=== PATIENT | female | born 1980 | race African-American/Black ===

== ENCOUNTER 2017-02-19 23:56 | Emergency (ER) | payer SELFPAY ==
[~2017-02-19 23:56] MED LIST: FERR134T5 PO; PREN1TAB80 PO
== END 2017-02-20 01:35 | disposition home or self-care (01) ==
LOC: EDH 23:56
DX: M06.9 Rheumatoid arthritis, unspecified (principal); J45.909 Unspecified asthma, uncomplicated; Z88.0 Allergy status to penicillin; Z88.8 Allergy status to other drugs, medicaments and biological substances
CPT/HCPCS: 81025

== ENCOUNTER 2017-04-02 11:18 | Emergency (ER) | payer SELFPAY ==
[2017-04-02 11:59] LABS: RAPID GROUP A STREP NEGATIVE (NEGATIVE)
[2017-04-02] MEDS ORDERED: ONDANSETRON HCL 4 MG/2 ML VIAL ONE (12:00)
== END 2017-04-02 12:22 | disposition home or self-care (01) ==
LOC: EDH 11:18
DX: J10.1 Influenza due to other identified influenza virus with other respiratory manifestations (principal); M81.0 Age-related osteoporosis without current pathological fracture; J45.909 Unspecified asthma, uncomplicated; Z88.0 Allergy status to penicillin; Z88.8 Allergy status to other drugs, medicaments and biological substances
CPT/HCPCS: 71045; 87804 ×2; 87880; 96361; 96374; 99285; J2405

== ENCOUNTER 2017-04-02 17:11 | Emergency (ER) | payer SELFPAY ==
[2017-04-02] MEDS ORDERED: DEXAMETHASONE SOD PHOSPHATE 10MG/ML 1ML VIAL ONE (17:42)
== END 2017-04-02 18:53 | disposition home or self-care (01) ==
LOC: EDH 17:11
DX: J11.1 Influenza due to unidentified influenza virus with other respiratory manifestations (principal); J45.909 Unspecified asthma, uncomplicated; M06.9 Rheumatoid arthritis, unspecified; Z87.891 Personal history of nicotine dependence; Z88.0 Allergy status to penicillin; Z88.8 Allergy status to other drugs, medicaments and biological substances
CPT/HCPCS: 96372; 99283; J1100

== ENCOUNTER 2017-06-09 22:02 | Emergency (ER) | payer SELFPAY ==
[2017-06-09] MEDS ORDERED: KETOROLAC TROMETHAMINE 30MG/ML ONE (23:07)
[2017-06-09] MEDS ORDERED: DEXAMETHASONE SOD PHOSPHATE 10MG/ML 1ML VIAL ONE (23:07)
== END 2017-06-10 00:17 | disposition home or self-care (01) ==
LOC: EDH 22:02
DX: M06.9 Rheumatoid arthritis, unspecified (principal); J45.909 Unspecified asthma, uncomplicated; Z88.0 Allergy status to penicillin; Z88.6 Allergy status to analgesic agent
CPT/HCPCS: 73110; 81025; 96374; 96375; 99285; J1100; J1885

== ENCOUNTER 2017-07-28 22:43 | Emergency (ER) | payer SELFPAY ==
[2017-07-28 23:27] LABS: BASOPHILS % (AUTO) 0.5 % (0.0-5.0); EOSINOPHILS % (AUTO) 1.5 % (0.0-8.0); HEMATOCRIT 29.1 % (36-48); LYMPHOCYTES % (AUTO) 21.3 % (21.0-51.0); MEAN CORPUSCULAR HEMOGLOBIN 28.1 pg (27.0-33.0); MEAN CORPUSCULAR HGB CONC 33.9 g/dL (32.0-36.0); MONOCYTES % (AUTO) 3.9 % (3.0-13.0); NEUTROPHILS % (AUTO) 72.8 % (40.0-77.0); PLATELET COUNT (AUTO) 51 K/uL (130-400); RED BLOOD CELL COUNT(AUTO) 3.51 MIL/uL (4.00-5.50); RED CELL DISTRIBUTION WIDTH 13.3 % (11.0-15.5); WHITE BLOOD COUNT (AUTO) 4.1 K/uL (4.8-10.8)
[2017-07-28 23:39] LABS: CREATININE 0.9 mg/dL (0.5-1.5); POTASSIUM 3.6 mmol/L (3.5-5.1)
[2017-07-28 23:44] LABS: ALBUMIN 2.4 g/dL (3.5-5.0); BILIRUBIN,TOTAL 0.2 mg/dL (0.2-1.0); TOTAL PROTEIN, SERUM 9.1 g/dL (6.0-8.3)
[2017-07-29] MEDS ORDERED: DEXAMETHASONE SOD PHOSPHATE 10MG/ML 1ML VIAL ONE (00:06)
[2017-07-29 00:41] LABS: APPEARANCE,URINE CLEAR (CLEAR); BILIRUBIN,URINE NEGATIVE (NEGATIVE); COLOR,URINE YELLOW (YELLOW); GLUCOSE, URINE (UA) NEGATIVE (NEGATIVE); KETONES,URINE NEGATIVE (NEGATIVE); LEUKOCYTE ESTERASE ,URINE NEGATIVE (NEGATIVE); NITRATE,URINE NEGATIVE (NEGATIVE); OCCULT BLOOD,URINE NEGATIVE (NEGATIVE); PH,URINE 6.5 (5.0-8.0); PROTEIN,URINE TRACE (NEGATIVE)
[2017-07-29 00:51] LABS: BACTERIA,URINE Rare /HPF (None Seen); MUCUS,URINE Few LPF (None Seen); WBC,URINE 0-1 /HPF (0-1)
[2017-07-29] MEDS ORDERED: KETOROLAC TROMETHAMINE 30MG/ML ONE (01:20)
== END 2017-07-29 02:32 | disposition home or self-care (01) ==
LOC: EDH 22:43
DX: M06.9 Rheumatoid arthritis, unspecified (principal); J45.909 Unspecified asthma, uncomplicated; Z88.0 Allergy status to penicillin; Z88.6 Allergy status to analgesic agent; Z98.890 Other specified postprocedural states
CPT/HCPCS: 36415; 80053; 81001; 85025; 85651; 96372; 96374; 99284; J1100; J1885

== ENCOUNTER 2018-03-05 10:43 | Emergency (ER) | payer OTHER ==
[2018-03-05 11:32] LABS: APPEARANCE,URINE Clear (CLEAR); BILIRUBIN,URINE Negative (NEGATIVE); COLOR,URINE Yellow (YELLOW); GLUCOSE, URINE (UA) Negative (NEGATIVE); KETONES,URINE Negative (NEGATIVE); LEUKOCYTE ESTERASE ,URINE Negative (NEGATIVE); NITRATE,URINE Negative (NEGATIVE); OCCULT BLOOD,URINE Small (NEGATIVE); PROTEIN,URINE Negative (NEGATIVE); UROBILINOGEN,URINE 0.2 mg/dL (0.2-1.0)
[2018-03-05 11:33] LABS: BASOPHILS % (AUTO) 0.7 % (0.0-5.0); HEMATOCRIT 28.4 % (36-48); LYMPHOCYTES % (AUTO) 30.2 % (21.0-51.0); MEAN CORPUSCULAR HEMOGLOBIN 27.8 pg (27.0-33.0); MEAN CORPUSCULAR HGB CONC 33.4 g/dL (32.0-36.0); MEAN CORPUSCULAR VOLUME 83.2 fL (79-99); MONOCYTES % (AUTO) 6.6 % (3.0-13.0); NEUTROPHILS % (AUTO) 61.5 % (40.0-77.0); NUCLEATED RED BLOOD CELLS 0.1 % (0.0-0.19); PLATELET COUNT (AUTO) 35 K/uL (130-400); RED BLOOD CELL COUNT(AUTO) 3.41 MIL/uL (4.00-5.50); RED CELL DISTRIBUTION WIDTH 16.2 % (11.0-15.5); WHITE BLOOD COUNT (AUTO) 3.1 K/uL (4.8-10.8)
[2018-03-05 11:35] LABS: HCG,QUAL RESULT NEGATIVE (NEGATIVE)
[2018-03-05 11:36] LABS: CREATININE 0.8 mg/dL (0.5-1.5); POTASSIUM 4.2 mmol/L (3.5-5.1)
[2018-03-05] MEDS ORDERED: MECLIZINE HCL 25 MG TABLET ONE (11:50)
[2018-03-05 11:56] LABS: BACTERIA,URINE None Seen /HPF (None Seen); RBC,URINE 0-1 /HPF (0-1); SQUAMOUS EPITHELIAL CELL,UR Rare /HPF (0-2); WBC,URINE None Seen /HPF (0-1)
== END 2018-03-05 12:53 | disposition home or self-care (01) ==
LOC: EDH 10:43
DX: R42 Dizziness and giddiness (principal); D69.6 Thrombocytopenia, unspecified; D64.9 Anemia, unspecified; J45.909 Unspecified asthma, uncomplicated; Z88.0 Allergy status to penicillin; Z88.5 Allergy status to narcotic agent; Z88.8 Allergy status to other drugs, medicaments and biological substances
CPT/HCPCS: 36415; 80048; 81001; 81025; 85025

== ENCOUNTER 2018-05-10 07:38 | Inpatient (IN) | payer OTHER | END 2018-05-13 12:00 | disposition short-term general hospital (02) | LOC: EDH 07:38 → 4CH 05-11 22:14 → EDHIP 07:39 → 2DH 15:23 | DX: D69.6 Thrombocytopenia, unspecified (principal); E87.1 Hypo-osmolality and hyponatremia; R10.31 Right lower quadrant pain ==

== ENCOUNTER 2018-09-02 22:02 | Inpatient (IN) | payer OTHER ==
[~2018-09-02] VITALS: Ht 154.9 cm; Wt 65.8 kg
[2018-09-02 22:40] LABS: INR 0.95 (0.85-1.15); PARTIAL THROMBOPLASTIN TIME 26.6 SEC (26.3-35.5)
[2018-09-02 22:44] LABS: CREATININE 0.9 mg/dL (0.5-1.5); POTASSIUM 3.6 mmol/L (3.5-5.1)
[2018-09-02 22:46] LABS: MEAN CORPUSCULAR HEMOGLOBIN 25.2 pg (27.0-33.0); NUCLEATED RED BLOOD CELLS 0.2 % (0.0-0.19); PLATELET COUNT (AUTO) 11 K/uL (130-400); WHITE BLOOD COUNT (AUTO) 4.6 K/uL (4.8-10.8)
[2018-09-02 22:49] LABS: ALBUMIN 2.3 g/dL (3.5-5.0); BILIRUBIN,TOTAL 0.1 mg/dL (0.2-1.0); TOTAL PROTEIN, SERUM 8.4 g/dL (6.0-8.3)
[2018-09-02 22:56] LABS: BASOPHILS % (AUTO) 0.3 % (0.0-5.0); EOSINOPHILS % (AUTO) 1.1 % (0.0-8.0); HEMATOCRIT 22.5 % (36-48); LYMPHOCYTES % (AUTO) 22.3 % (21.0-51.0); MEAN CORPUSCULAR HGB CONC 32.8 g/dL (32.0-36.0); MEAN CORPUSCULAR VOLUME 76.7 fL (79-99); MONOCYTES % (AUTO) 3.6 % (3.0-13.0); NEUTROPHILS % (AUTO) 72.7 % (40.0-77.0); RED BLOOD CELL COUNT(AUTO) 2.93 MIL/uL (4.00-5.50); RED CELL DISTRIBUTION WIDTH 15.1 % (11.0-15.5)
[2018-09-02 23:35] LABS: APPEARANCE,URINE Clear (CLEAR); BILIRUBIN,URINE Negative (NEGATIVE); COLOR,URINE Yellow (YELLOW); GLUCOSE, URINE (UA) Negative (NEGATIVE); KETONES,URINE Negative (NEGATIVE); LEUKOCYTE ESTERASE ,URINE Negative (NEGATIVE); NITRATE,URINE Negative (NEGATIVE); OCCULT BLOOD,URINE Negative (NEGATIVE); PH,URINE 6.5 (5.0-8.0); PROTEIN,URINE Negative (NEGATIVE)
[2018-09-03] MEDS ORDERED: ONDANSETRON HCL 4 MG/2 ML VIAL ONE (00:07)
[2018-09-03] MEDS ORDERED: MORPHINE SULFATE 4 MG/1ML SYG ONE (00:08)
[2018-09-03] MEDS ORDERED: SODIUM CHLORIDE 0.9% 500ML 500 ML IV ONE (01:56)
[2018-09-03 02:55] VITALS: BP 117/61
[2018-09-03 07:31] VITALS: BP 105/73
[2018-09-03 08:19] LABS: HEMATOCRIT 22.1 % (36-48); MEAN CORPUSCULAR HEMOGLOBIN 25.1 pg (27.0-33.0); MEAN CORPUSCULAR HGB CONC 32.4 g/dL (32.0-36.0); MEAN CORPUSCULAR VOLUME 77.6 fL (79-99); PLATELET COUNT (AUTO) 36 K/uL (130-400); RED BLOOD CELL COUNT(AUTO) 2.85 MIL/uL (4.00-5.50); RED CELL DISTRIBUTION WIDTH 15.5 % (11.0-15.5); WHITE BLOOD COUNT (AUTO) 3.8 K/uL (4.8-10.8)
--- NOTE | 2018-09-03 10:16 | NUR ---
BERTHA Denise met with pt who lives with her [phone] and daughter who assist pt with all her ADLS. Pt states has to help her in shower, dressing, grooming, walking. Pt has no DME or in home care services. Pt reports she has been denied SSD 3xs and is now working with an shipyard painter apprentice and the appeal public relations counselor in [place]. Pt is seen by Dr Welch. Plan is home with family. CM to follow and assist as needed Addendum: 09/03/18 at 1038 by HOWARD CASTILLO Amended: Links added.
[2018-09-03 10:50] VITALS: BP 108/67
[2018-09-03 15:39] LABS: HEMATOCRIT 22.2 % (36-48); MEAN CORPUSCULAR HEMOGLOBIN 24.9 pg (27.0-33.0); MEAN CORPUSCULAR VOLUME 77.7 fL (79-99); NUCLEATED RED BLOOD CELLS 0.1 % (0.0-0.19); PLATELET COUNT (AUTO) 18 K/uL (130-400); RED BLOOD CELL COUNT(AUTO) 2.86 MIL/uL (4.00-5.50); RED CELL DISTRIBUTION WIDTH 15.6 % (11.0-15.5); WHITE BLOOD COUNT (AUTO) 3.4 K/uL (4.8-10.8)
[2018-09-03 16:10] VITALS: BP 115/75
[2018-09-03] MEDS ORDERED: IRON SUCROSE COMPLEX 200 MG in SODIUM CHLORIDE 0.9% 50 ML IV SCH (16:30)
[2018-09-03] MEDS ORDERED: COMPOUND IV MISC 1 EACH IVSOLN MISC PRN (16:30)
[2018-09-03 16:40] LABS: BAND NEUTROPHILS % (MANUAL) 2 % (0-2); EOSINOPHILS % (MANUAL) 4 % (1-6); LYMPHOCYTES % (MANUAL) 22 % (22-44); MONOCYTES % (MANUAL) 10 % (2-9); SEGMENTED NEUTROPHILS % 62 % (40-70)
[2018-09-03 16:41] LABS: PLATELET MORPHOLOGY COMMENT MARKED DECREASE
[2018-09-03 17:47] LABS: % IRON SATURATION 11.9 % (22-44)
[2018-09-03] MEDS: METHYLPREDNISOLONE SOD SUCC 125MG/2ML VIAL IVP SCH (18:45)
[2018-09-03] MEDS: FAMOTIDINE 20MG TAB 20 MG TAB PO SCH (18:45)
--- NOTE | 2018-09-03 19:23 | NUR ---
Reported CBC results to Dr. Madison Ames. No new orders given. He said to allow for steroids to work and then Dr. Welch will take over in am.
[2018-09-03] MEDS ORDERED: ELTR25TA PO (19:30)
[2018-09-03 19:45] VITALS: BP 106/65
[2018-09-03 23:37] VITALS: BP 114/73
[2018-09-04 04:00] VITALS: BP 105/55
[2018-09-04] MEDS: METHYLPREDNISOLONE SOD SUCC 125MG/2ML VIAL IVP SCH ×2 (05:18→08:57)
[2018-09-04 05:38] LABS: HEMATOCRIT 33.2 % (36-48); MEAN CORPUSCULAR HEMOGLOBIN 24.3 pg (27.0-33.0); MEAN CORPUSCULAR HGB CONC 31.4 g/dL (32.0-36.0); MEAN CORPUSCULAR VOLUME 77.4 fL (79-99); PLATELET COUNT (AUTO) 16 K/uL (130-400); RED BLOOD CELL COUNT(AUTO) 4.29 MIL/uL (4.00-5.50); RED CELL DISTRIBUTION WIDTH 15.4 % (11.0-15.5); WHITE BLOOD COUNT (AUTO) 3.7 K/uL (4.8-10.8)
[2018-09-04 05:52] LABS: LYMPHOCYTES % (MANUAL) 19 % (22-44); MAN.DIFF COMMENT-IMPRESSION MANUAL DIFFERENTIAL; MONOCYTES % (MANUAL) 2 % (2-9); SEGMENTED NEUTROPHILS % 79 % (40-70)
[2018-09-04 05:53] LABS: PLATELET MORPHOLOGY COMMENT MARKED DECREASE
[2018-09-04 07:38] VITALS: BP 133/76
[2018-09-04] MEDS: FAMOTIDINE 20MG TAB 20 MG TAB PO SCH (08:56)
[2018-09-04 11:30] VITALS: BP 115/75
--- NOTE | 2018-09-04 12:35 | NUR ---
DISCHARGE DISCHARGE TEACHING DONE WITH PATIENT, VERBALIZED UNDERSTANDING. NO NOTED SOB OR DISTRESS. NO NEW MEDICATIONS. PT AWARE OF APPOINTMENT WITH DR. GAVIRIA TOMORROW. IV REMOVED, CATH TIP INTACT. PENDING TO BE TRANSFERRED OUT VIA PRIVATE VEHICLE.
== END 2018-09-04 13:33 | disposition home or self-care (01) | DRG 547 ==
LOC: EDH 22:02 → OBSVTOIN 22:03 → EDHIP 22:03 → 4AH 09-03 01:23
PROVIDERS: ADMIT Internal Medicine Hematology & Oncology; ATTEND Internal Medicine Hematology & Oncology
PROC: 30233R1 Transfusion of Nonautologous Platelets into Peripheral Vein, Percutaneous Approach (ICD-10-PCS; principal; 2018-09-02)
DX: M06.9 Rheumatoid arthritis, unspecified (principal); Z88.5 Allergy status to narcotic agent; Z88.0 Allergy status to penicillin; Z91.018 Allergy to other foods; Z91.048 Other nonmedicinal substance allergy status
CPT/HCPCS: 36415; 71045; 80053; 81003; 83540; 83550; 83690; 84484; 85025; 85027; 85060; 85610; 85730; 86850; 86900; 86901; 93005; G0378; J1756; J2270; J2405; J2930; J7040; P9034

== ENCOUNTER 2019-01-11 03:53 | Emergency (ER) | payer SELFPAY ==
[2019-01-11] MEDS ORDERED: METOCLOPRAMIDE 10 MG/2 ML VIAL ONE (04:49)
[2019-01-11] MEDS ORDERED: SODIUM CHLORIDE 0.9% 1000ML 2,000 ML IV ONE (04:50)
[2019-01-11] MEDS ORDERED: DiphenhydrAMINE HCL 50 MG/ML VIAL ONE (04:50)
[2019-01-11 05:06] LABS: CREATININE 0.6 mg/dL (0.5-1.5); POTASSIUM 4.2 mmol/L (3.5-5.1)
[2019-01-11 05:10] LABS: PARTIAL THROMBOPLASTIN TIME 21.9 SEC (26.3-35.5); PROTHROMBIN TIME 10.3 SEC (9.6-11.6)
[2019-01-11 05:11] LABS: ALBUMIN 2.6 g/dL (3.5-5.0); BILIRUBIN,TOTAL 0.5 mg/dL (0.2-1.0); TOTAL PROTEIN, SERUM 7.5 g/dL (6.0-8.3)
[2019-01-11 05:12] LABS: BASOPHILS % (AUTO) 0.3 % (0.0-5.0); EOSINOPHILS % (AUTO) 0.1 % (0.0-8.0); HEMATOCRIT 29.3 % (36-48); LYMPHOCYTES % (AUTO) 13.7 % (21.0-51.0); MEAN CORPUSCULAR HEMOGLOBIN 27.6 pg (27.0-33.0); MEAN CORPUSCULAR VOLUME 83.8 fL (79-99); MONOCYTES % (AUTO) 5.6 % (3.0-13.0); NEUTROPHILS % (AUTO) 80.3 % (40.0-77.0); NUCLEATED RED BLOOD CELLS 0.1 % (0.0-0.19); RED BLOOD CELL COUNT(AUTO) 3.49 MIL/uL (4.00-5.50); RED CELL DISTRIBUTION WIDTH 24.2 % (11.0-15.5)
[2019-01-11 05:14] LABS: PLATELET COUNT (AUTO) 733 K/uL (130-400)
[2019-01-11] MEDS ORDERED: ORPHENADRINE CITRATE 30 MG/ML ML ONE (06:01)
[2019-01-11] MEDS ORDERED: KETOROLAC TROMETHAMINE 30MG/ML ONE (06:02)
== END 2019-01-11 06:38 | disposition home or self-care (01) ==
LOC: EDH 03:53
DX: E86.9 Volume depletion, unspecified (principal); R11.2 Nausea with vomiting, unspecified; M62.838 Other muscle spasm; G43.909 Migraine, unspecified, not intractable, without status migrainosus; M19.90 Unspecified osteoarthritis, unspecified site; J45.909 Unspecified asthma, uncomplicated; Z88.0 Allergy status to penicillin; Z88.5 Allergy status to narcotic agent; Z88.8 Allergy status to other drugs, medicaments and biological substances
CPT/HCPCS: 36415; 70450; 80053; 85025; 85610; 85730; 96361; 96374; 96375; 99285; J1200; J1885; J2360; J2765; J7030

== ENCOUNTER 2019-03-10 21:03 | Emergency (ER) | payer SELFPAY ==
[2019-03-10] MEDS ORDERED: ONDANSETRON ODT 4 MG TAB ONE (21:28)
[2019-03-10] MEDS ORDERED: TRAMADOL HCL 50 MG TABLET ONE (21:28)
[2019-03-10] MEDS ORDERED: MORPHINE SULFATE 5 MG/ML VIAL ONE (22:31)
== END 2019-03-10 23:09 | disposition home or self-care (01) ==
LOC: EDH 21:03
DX: M06.9 Rheumatoid arthritis, unspecified (principal); G43.909 Migraine, unspecified, not intractable, without status migrainosus; J45.909 Unspecified asthma, uncomplicated; Z88.6 Allergy status to analgesic agent; Z88.0 Allergy status to penicillin; Z91.018 Allergy to other foods; Z98.890 Other specified postprocedural states
CPT/HCPCS: 96372; 99283; J2270

== ENCOUNTER → 2019-03-26 | Outpatient (CLI) | payer OTHER | END | disposition home or self-care (01) | LOC: OIH 14:02 | PROVIDERS: ATTEND Internal Medicine | DX: M25.562 Pain in left knee (principal); M25.561 Pain in right knee | CPT/HCPCS: 73560 ==

== ENCOUNTER 2019-04-07 20:24 | Emergency (ER) | payer OTHER ==
[2019-04-07] MEDS ORDERED: SODIUM CHLORIDE 0.9% 1000ML 1,000 ML IV ONE (21:14)
[2019-04-07] MEDS ORDERED: PROCHLORPERAZINE EDISYLATE 10 MG/2 ML VIAL ONE (21:14)
[2019-04-07] MEDS ORDERED: KETOROLAC TROMETHAMINE 30MG/ML ONE (21:14)
[2019-04-07 21:15] LABS: BASOPHILS % (AUTO) 0.1 % (0.0-5.0); EOSINOPHILS % (AUTO) 0.6 % (0.0-8.0); HEMATOCRIT 34.9 % (36-48); LYMPHOCYTES % (AUTO) 15.1 % (21.0-51.0); MEAN CORPUSCULAR HEMOGLOBIN 28.4 pg (27.0-33.0); MEAN CORPUSCULAR HGB CONC 32.7 g/dL (32.0-36.0); MONOCYTES % (AUTO) 5.5 % (3.0-13.0); PLATELET COUNT (AUTO) 558 K/uL (130-400); RED BLOOD CELL COUNT(AUTO) 4.01 MIL/uL (4.00-5.50); WHITE BLOOD COUNT (AUTO) 6.9 K/uL (4.8-10.8)
[2019-04-07 21:30] LABS: CREATININE 0.6 mg/dL (0.5-1.5); POTASSIUM 4.3 mmol/L (3.5-5.1)
[2019-04-07 21:31] LABS: INR 0.99 (0.85-1.15); PARTIAL THROMBOPLASTIN TIME 24.5 SEC (26.3-35.5); PROTHROMBIN TIME 10.4 SEC (9.6-11.6)
[2019-04-07 21:35] LABS: ALBUMIN 2.8 g/dL (3.5-5.0); BILIRUBIN,TOTAL 0.5 mg/dL (0.2-1.0)
[2019-04-07 22:28] LABS: APPEARANCE,URINE Clear (CLEAR); BILIRUBIN,URINE Negative (NEGATIVE); COLOR,URINE Yellow (YELLOW); GLUCOSE, URINE (UA) Negative (NEGATIVE); KETONES,URINE Negative (NEGATIVE); LEUKOCYTE ESTERASE ,URINE Negative (NEGATIVE); NITRATE,URINE Negative (NEGATIVE); OCCULT BLOOD,URINE Negative (NEGATIVE); PH,URINE 7.5 (5.0-8.0); PROTEIN,URINE Trace mg/dL (NEGATIVE)
[2019-04-07 22:36] LABS: AMPHET/METH SCREEN,URINE NEGATIVE (NEGATIVE); BARBITURATE SCREEN, URINE NEGATIVE (NEGATIVE); BENZODIAZEPINES SCREEN,URINE NEGATIVE (NEGATIVE); CANNABINOID SCREEN,URINE POSITIVE (NEGATIVE); COCAINE SCREEN,URINE NEGATIVE (NEGATIVE); OPIATE SCREEN,URINE NEGATIVE (NEGATIVE); PHENCYCLIDINE SCREEN,URINE NEGATIVE (NEGATIVE)
== END 2019-04-07 23:37 | disposition home or self-care (01) ==
LOC: EDH 20:24
DX: S66.912A Strain of unspecified muscle, fascia and tendon at wrist and hand level, left hand, initial encounter (principal); S09.90XA Unspecified injury of head, initial encounter; G43.909 Migraine, unspecified, not intractable, without status migrainosus; J45.909 Unspecified asthma, uncomplicated; Z98.890 Other specified postprocedural states; Z88.0 Allergy status to penicillin; Z88.6 Allergy status to analgesic agent; Z91.018 Allergy to other foods; Z88.1 Allergy status to other antibiotic agents; Z88.5 Allergy status to narcotic agent; M19.90 Unspecified osteoarthritis, unspecified site; W18.39XA Other fall on same level, initial encounter; Y93.89 Activity, other specified; Y92.091 Bathroom in other non-institutional residence as the place of occurrence of the external cause; Y99.8 Other external cause status
CPT/HCPCS: 36415; 70450; 73110; 80053; 80305; 81003; 81025; 84484; 85025; 85610; 85730; 93005; 96374; 96375; 99285; J0780; J1885; J7030

== ENCOUNTER 2019-07-21 22:55 | Inpatient (IN) | payer MEDICAID, OTHER ==
[~2019-07-21] VITALS: Ht 152.4 cm; Wt 75.3 kg
[2019-07-21 23:31] LABS: CREATININE 0.9 mg/dL (0.5-1.5); POTASSIUM 4.7 mmol/L (3.5-5.1)
[2019-07-21 23:36] LABS: BASOPHILS % (AUTO) 0.2 % (0.0-5.0); BILIRUBIN,TOTAL 0.3 mg/dL (0.2-1.0); EOSINOPHILS % (AUTO) 0.5 % (0.0-8.0); HEMATOCRIT 28.6 % (36-48); LYMPHOCYTES % (AUTO) 29.9 % (21.0-51.0); MEAN CORPUSCULAR HEMOGLOBIN 30.4 pg (27.0-33.0); MEAN CORPUSCULAR HGB CONC 32.5 g/dL (32.0-36.0); MEAN CORPUSCULAR VOLUME 93.5 fL (79-99); MONOCYTES % (AUTO) 5.2 % (3.0-13.0); NEUTROPHILS % (AUTO) 62.9 % (40.0-77.0); NUCLEATED RED BLOOD CELLS 0.2 % (0.0-0.19); RED BLOOD CELL COUNT(AUTO) 3.06 MIL/uL (4.00-5.50); RED CELL DISTRIBUTION WIDTH 13.8 % (11.0-15.5); TOTAL PROTEIN, SERUM 6.9 g/dL (6.0-8.3); WHITE BLOOD COUNT (AUTO) 8.4 K/uL (4.8-10.8)
[2019-07-21] MEDS ORDERED: FAMOTIDINE/PF 20 MG/2 ML VIAL IV ONE (23:45)
[2019-07-21] MEDS ORDERED: ONDANSETRON HCL 4 MG/2 ML VIAL ONE (23:45)
[2019-07-21 23:51] LABS: PLATELET COUNT (AUTO) 30 K/uL (130-400)
[2019-07-22 00:34] LABS: APPEARANCE,URINE Clear (CLEAR); BILIRUBIN,URINE Negative (NEGATIVE); COLOR,URINE Yellow (YELLOW); GLUCOSE, URINE (UA) Negative (NEGATIVE); KETONES,URINE Negative (NEGATIVE); LEUKOCYTE ESTERASE ,URINE Negative (NEGATIVE); NITRATE,URINE Negative (NEGATIVE); OCCULT BLOOD,URINE Negative (NEGATIVE); PROTEIN,URINE POS 2+ mg/dL (NEGATIVE); UROBILINOGEN,URINE 0.2 mg/dL (0.2-1.0)
[2019-07-22 00:36] LABS: HCG,QUAL RESULT NEGATIVE (NEGATIVE)
[2019-07-22 00:41] LABS: BACTERIA,URINE None Seen /HPF (None Seen); MUCUS,URINE Rare LPF (None Seen); RBC,URINE None Seen /HPF (0-1); SQUAMOUS EPITHELIAL CELL,UR Rare /HPF (0-2); WBC,URINE None Seen /HPF (0-1)
[2019-07-22] MEDS ORDERED: LIDOCAINE HCL 2% VISCOUS 15 ML UDCUP ONE (01:00)
[2019-07-22] MEDS ORDERED: MAG HYDROX/AL HYDROX/SIMETH ES 30 ML SUSP UDCUP ONE (01:00)
[2019-07-22] MEDS ORDERED: ACETAMINOPHEN 325 MG TAB PO PRN ×2 (01:30)
[2019-07-22] MEDS ORDERED: LACTULOSE 20 GM/30 ML UDCUP PO PRN (01:30)
[2019-07-22] MEDS ORDERED: ONDANSETRON HCL 4 MG/2 ML VIAL IV PRN (01:30)
[2019-07-22 02:25] VITALS: BP 95/62
[2019-07-22] MEDS ORDERED: MULT-1192 PO (03:42)
[2019-07-22] MEDS ORDERED: FERR325T22 PO (03:42)
[2019-07-22] MEDS ORDERED: PRED5TAB PO (03:42)
[2019-07-22] MEDS: SODIUM CHLORIDE 0.9% 1000ML 1,000 ML IV SCH ×2 (05:42→11:26)
[2019-07-22 06:52] LABS: CREATININE 0.7 mg/dL (0.5-1.5); POTASSIUM 3.6 mmol/L (3.5-5.1)
[2019-07-22 07:38] LABS: BASOPHILS % (AUTO) 0.2 % (0.0-5.0); EOSINOPHILS % (AUTO) 0.8 % (0.0-8.0); HEMATOCRIT 25.8 % (36-48); LYMPHOCYTES % (AUTO) 27.3 % (21.0-51.0); MEAN CORPUSCULAR HEMOGLOBIN 30.8 pg (27.0-33.0); MEAN CORPUSCULAR HGB CONC 32.9 g/dL (32.0-36.0); MEAN CORPUSCULAR VOLUME 93.5 fL (79-99); MONOCYTES % (AUTO) 5.2 % (3.0-13.0); NEUTROPHILS % (AUTO) 65.7 % (40.0-77.0); RED BLOOD CELL COUNT(AUTO) 2.76 MIL/uL (4.00-5.50); RED CELL DISTRIBUTION WIDTH 13.8 % (11.0-15.5); WHITE BLOOD COUNT (AUTO) 6.4 K/uL (4.8-10.8)
[2019-07-22 07:41] VITALS: BP 93/48
[2019-07-22 08:05] LABS: PLATELET COUNT (AUTO) 1 K/uL (130-400)
--- NOTE | 2019-07-22 08:10 | NUR ---
PAGED HOSPITALIST PAGED DR. John FANG TO REPORT CRITICAL PLATELET LAB VALUE. AWAITING CALLBACK.
--- NOTE | 2019-07-22 08:16 | NUR ---
DR. GAVIRIA AWARE OF CONSULT INFORMED OF PLATELT COUNT. DOES NOT RECOMMEND PLATELET TRANSFUSION, RECOMMENDS STARTING PATIENT ON SOLUMEDROL 125 IV Q6H.
--- NOTE | 2019-07-22 08:17 | NUR ---
HOSPITALIST SPOKE TO DR. STEFANO MURPHY AND INFORMED OF DR. GAVIRIA RECOMMENDATIONS.
[2019-07-22] MEDS: METHYLPREDNISOLONE SOD SUCC 125MG/2ML VIAL IVP SCH ×3 (08:35→21:07)
[2019-07-22] MEDS: FAMOTIDINE/PF 20 MG/2 ML VIAL IV SCH ×2 (08:37→21:07)
[2019-07-22] MEDS: SIMETHICONE 80 MG TAB.CHEW PO SCH ×4 (09:00→21:07)
[2019-07-22 11:52] VITALS: BP 107/64
[2019-07-22 16:31] LABS: HEMATOCRIT 29.8 % (36-48); MEAN CORPUSCULAR HEMOGLOBIN 29.9 pg (27.0-33.0); MEAN CORPUSCULAR HGB CONC 31.5 g/dL (32.0-36.0); MEAN CORPUSCULAR VOLUME 94.9 fL (79-99); PLATELET COUNT (AUTO) 51 K/uL (130-400); RED BLOOD CELL COUNT(AUTO) 3.14 MIL/uL (4.00-5.50); RED CELL DISTRIBUTION WIDTH 13.9 % (11.0-15.5); WHITE BLOOD COUNT (AUTO) 9.8 K/uL (4.8-10.8)
[2019-07-22 16:54] VITALS: BP 111/78
--- NOTE | 2019-07-22 16:54 | NUR ---
INITIAL: Met with pt this afternoon to discuss dcp. Pt mentions that she lives w her spouse and [facility]. Prior to admission she was independent w ambulation but at times when her RA flares up she needs assistance. She mentions that her 14yr old and spouse assist. She has at home a sh chair, 2canes and a borrowed rollator. Pt mentions that she has been working on getting Medicaid but has hit several road blocks. She mentions that currently she purchase her medications from [email or web address]. Per pt she feels safe and comfortable to return home at [place]. Low income packet provided to pt. CM to continue to follow and wait for Md recommendations. Addendum: 07/22/19 at 1657 by BRODERICK RASCON Amended: Links added.
[2019-07-22 17:08] LABS: LYMPHOCYTES % (MANUAL) 5 % (22-44); SEGMENTED NEUTROPHILS % 95 % (40-70)
[2019-07-22 17:09] LABS: MAN.DIFF COMMENT-IMPRESSION MANUAL DIFFERENTIAL
[2019-07-22 20:00] VITALS: BP 112/71
[2019-07-22 23:34] VITALS: BP 108/65
[2019-07-23] MEDS: METHYLPREDNISOLONE SOD SUCC 125MG/2ML VIAL IVP SCH ×3 (03:21→15:39)
[2019-07-23 04:00] VITALS: BP 104/59
[2019-07-23 04:25] LABS: BASOPHILS % (AUTO) 0.1 % (0.0-5.0); HEMATOCRIT 28.9 % (36-48); MEAN CORPUSCULAR HEMOGLOBIN 30.4 pg (27.0-33.0); MEAN CORPUSCULAR HGB CONC 32.5 g/dL (32.0-36.0); MEAN CORPUSCULAR VOLUME 93.5 fL (79-99); MONOCYTES % (AUTO) 1.4 % (3.0-13.0); NEUTROPHILS % (AUTO) 89.5 % (40.0-77.0); PLATELET COUNT (AUTO) 11 K/uL (130-400); RED BLOOD CELL COUNT(AUTO) 3.09 MIL/uL (4.00-5.50); RED CELL DISTRIBUTION WIDTH 13.5 % (11.0-15.5); WHITE BLOOD COUNT (AUTO) 12.1 K/uL (4.8-10.8)
[2019-07-23 04:42] LABS: BILIRUBIN,TOTAL 0.3 mg/dL (0.2-1.0); CREATININE 0.8 mg/dL (0.5-1.5); POTASSIUM 3.7 mmol/L (3.5-5.1); TOTAL PROTEIN, SERUM 6.8 g/dL (6.0-8.3)
[2019-07-23 04:59] LABS: % IRON SATURATION 18.1 % (22-44)
[2019-07-23 08:32] VITALS: BP 111/71
[2019-07-23] MEDS: SIMETHICONE 80 MG TAB.CHEW PO SCH ×2 (09:37→13:00)
[2019-07-23] MEDS: FAMOTIDINE/PF 20 MG/2 ML VIAL IV SCH (09:37)
[2019-07-23 11:28] VITALS: BP 114/73
[2019-07-23] MEDS ORDERED: PANT40TA55 PO (15:47)
[2019-07-23] MEDS ORDERED: PRED20TA3 PO (15:47)
--- NOTE | 2019-07-23 17:15 | NUR ---
DISCHARGE PATIENT GIVEN DISCHARGE INSTRUCTIONS VIA TEACH BACK. 20G PIV TO RFA DISCONTINUED, TIP INTACT. PATIENT TO FOLLOW UP WITH DR. GAVIRIA TOMORROW AT 1300. E-RX SENT TO [facility] FOR PROTONIX AND PREDNISONE. PATIENT STABLE AT THIS TIME. PATIENT WHEELED TO [facility] FOR DISCHARGE BY TESS DOUGLASS. SPOUSE AWAITING IN VEHICLE.
== END 2019-07-23 17:15 | disposition home or self-care (01) | DRG 813 ==
LOC: EDH 22:55 → EDHIP 22:56 → OBSVTOIN 22:56 → EDHIP 07-22 01:26 → UNDOADMOB 07-22 01:26 → 3BH 07-22 01:43
PROVIDERS: ADMIT Hospitalist; ATTEND Hospitalist
PROC: 30233R1 Transfusion of Nonautologous Platelets into Peripheral Vein, Percutaneous Approach (ICD-10-PCS; principal; 2019-07-23)
DX: D69.3 Immune thrombocytopenic purpura (principal); D69.6 Thrombocytopenia, unspecified; D69.59 Other secondary thrombocytopenia; M06.9 Rheumatoid arthritis, unspecified; M35.00 Sjogren syndrome, unspecified; Z88.5 Allergy status to narcotic agent; Z88.0 Allergy status to penicillin; Z88.8 Allergy status to other drugs, medicaments and biological substances; Z91.018 Allergy to other foods; Z82.0 Family history of epilepsy and other diseases of the nervous system; Z82.3 Family history of stroke; Z82.49 Family history of ischemic heart disease and other diseases of the circulatory system; Z82.5 Family history of asthma and other chronic lower respiratory diseases; Z83.3 Family history of diabetes mellitus
CPT/HCPCS: 36415; 36430; 74176; 80048; 80053; 81001; 81025; 82270; 82607; 82728; 82746; 83540; 83550; 83615; 83630; 83690; 85025; 85045; 86850; 86900; 86901; 87046; 87177; 87324; 87338; 93005; G0378; J2405; J2930; J3490; P9034

== ENCOUNTER 2024-11-25 17:19 | Emergency (ER) | payer MEDICAID ==
[~2024-11-25] VITALS: Ht 152.4 cm; Wt 83.9 kg
[~2024-11-25 17:19] MED LIST changes: -FERR134T5 PO; +FERR325T22 PO; +MULT-1192 PO; -PREN1TAB80 PO
[2024-11-25 17:52] LABS: IMMATURE GRANULOCYTE ABSOLUTE 0.13 K/uL (0-1); NUCLEATED RED BLOOD CELLS 0.0 % (0.0-0.19); PLATELET COUNT (AUTO) 256 K/uL (130-400); RED BLOOD CELL COUNT(AUTO) 4.13 MIL/uL (4.00-5.50); RED CELL DISTRIBUTION WIDTH 14.5 % (11.0-15.5); WHITE BLOOD COUNT (AUTO) 13.1 K/uL (4.8-10.8)
[2024-11-25 18:01] LABS: CREATININE 0.7 mg/dL (0.5-1.0); GLOMERULAR FILTR. RATE CALC 109.0 mL/min (>90); GLUCOSE,RANDOM 91.0 mg/dL (70-105); SODIUM SERUM 132.0 mmol/L (136-145); UREA NITROGEN, BLOOD 7.0 mg/dL (7-18)
[2024-11-25 18:09] LABS: RAPID GROUP A STREP negative (NEGATIVE)
[2024-11-25] MEDS: 0.9%NACL 1000ML 1,000 ML IV STA (18:10)
[2024-11-25 18:13] LABS: SARS-CoV-2, RNA, NAAT NEGATIVE SARS CoV-2 (NEGATIVE)
[2024-11-25 18:18] LABS: INFLUENZA TYPE A Negative For Type A (NEGATIVE); INFLUENZA TYPE B Negative For Type B (NEGATIVE)
--- NOTE | 2024-11-25 19:56 | ERN ---
ED Note History of Present Illness Stated Complaint: 1980 Chief Complaint: Nausea,Vomiting,Diarrhea Time Seen by MD: 17:22 Time Seen by Midlevel: 17:28 Dictation: 44-year-old female with a history of lupus coming in with complaints of nausea, vomiting for the last couple of days. Patient states she has has a having headaches phonophobia and photophobia. Denies having any fever, cough, congestion, blood in emesis. Allergies: Coded Allergies: hydroxychloroquine (Unverified Allergy, Severe, 10/29/14) LOSES ALL BODILY FUNCTIONS Penicillins (Unverified Allergy, Unknown, RASH, 10/29/14) coconut oil (Unverified Allergy, Unknown, 10/30/14) food coconut codeine (Unverified Allergy, Unknown, SHORTNESS OF BREATH, 10/29/14) peach (Unverified Allergy, Unknown, 10/30/14) Home Meds Reported Medications Ferrous Sulfate (Ferrous Sulfate) 325 Mg Tablet, 325 MG PO DAILY, TAB 07/22/19 Multivitamin (Multi-Vitamin Daily) 1 Each Tablet, 1 EACH PO DAILY, TAB 07/22/19 Past Medical History Past Medical History: Anemia, Hypertension Additional Past Medical Hx: Systemic lupus erythematosus, Sjogren's syndrome. Surgical History: Unknown Surgical History Other: D&C and sinus surgery. PORT A CATH RT SIDE. Family History: DM, HTN Social History: Negative, Lives with family Review of System Dictation Constitutional: Negative for fever,chills, and weight loss Eyes: Negative for injury, pain,redness, and discharge ENT: Negative for injury,pain or swelling Cardiovascular: Negative for chest pain, palpitations, and edema Respiratory: Negative for shortness of breath, cough, and wheezing, Abdomen/GI: Complaining of nausea and vomiting Back: Negative for injury and pain : Negative for injury, bleeding and discharge MS/Extremity: Negative for injury and deformity Skin: Negative for rash, and discoloration Neuro: Negative for headache, weakness, numbness, tingling, and seizure Psych: Negative for suicide ideation, homicidal ideation, and hallucinations Review of Systems: was completed Initial Vital Sign VS Vital Signs Date Time Temp Pulse Resp B/P (MAP) Pulse Ox O2 Delivery O2 Flow Rate FiO2 11/25/24 17:23 99.1 107 14 134/86 100 Room Air 0 11/25/24 17:45 21 Physical Exam Dictation General: awake, alert, NAD Head/Face: Normocephalic, atraumatic Eyes: PERRL, EOMI, vision at baseline ENT: oral cavity clear, TMs clear, no signs of infection Neck: Trachea midline, supple, no nuchal rigidity Cardiovascular: RRR, normal S1/S2, No MRGs, no JVD Respiratory: CTAB, no respiratory distress, No rales or wheezes Abdomen: Soft, non-tender, non-distended, normal bowel sounds, no guarding or rebound. Skin: Warm, dry, normal turgor, no rash MS/Extremity: Pulses equal, no cyanosis, neurovascular intact, FROM Neuro: COAx4, GCS 15, strength 5/5, CN 2-12 intact, normal cerebellar exam, normal gait, Psych: Normal behavior, mood, and affect normal Results (Laboratory/Radiology) Laboratory/Radiology Laboratory Tests Test 11/25/24 17:46 11/25/24 17:48 11/25/24 19:59 White Blood Count 13.1 K/uL (4.8-10.8) H Red Blood Count 4.13 MIL/uL (4.00-5.50) Hemoglobin 12.0 g/dL (12.0-16.0) Hematocrit 37.1 % (36-48) Mean Corpuscular Volume 89.8 fL (79-99) Mean Corpuscular Hemoglobin 29.1 pg (27.0-33.0) Mean Corpuscular Hemoglobin Concent 32.3 g/dL (32.0-36.0) Red Cell Distribution Width 14.5 % (11.0-15.5) Platelet Count 256 K/uL (130-400) Mean Platelet Volume 9.4 fL (7.5-10.5) Immature Granulocyte % (Auto) 1.0 % (0-1) Neutrophils (%) (Auto) 87.9 % (40.0-77.0) H Lymphocytes (%) (Auto) 6.7 % (21.0-51.0) L Monocytes (%) (Auto) 4.0 % (3.0-13.0) Eosinophils (%) (Auto) 0.2 % (0.0-8.0) Basophils (%) (Auto) 0.2 % (0.0-5.0) Neutrophils # (Auto) 11.5 K/uL (1.8-7.7) H Lymphocytes # (Auto) 0.9 K/uL (1.0-4.8) L Monocytes # (Auto) 0.5 K/uL (0.1-1.0) Eosinophils # (Auto) 0.03 K/uL (0.00-0.70) Basophils # (Auto) 0.03 K/uL (0.00-0.20) Absolute Immature Granulocyte (auto 0.13 K/uL (0-1) Nucleated Red Blood Cells 0.0 % (0.0-0.19) White Cell Morphology Comment See comments Sodium Level 132 mmol/L (136-145) L Potassium Level 4.2 mmol/L (3.5-5.1) Chloride Level 96 mmol/L (101-111) L Carbon Dioxide Level 29 mmol/L (21-32) Blood Urea Nitrogen 7 mg/dL (7-18) Creatinine 0.7 mg/dL (0.5-1.0) Glomerular Filtration Rate Calc 109 mL/min (>90) Random Glucose 91 mg/dL (70-105) Total Calcium 8.9 mg/dL (8.5-10.1) Total Bilirubin 0.6 mg/dL (0.2-1.0) Direct Bilirubin 0.1 mg/dL (0.0-0.3) Aspartate Amino Transf (AST/SGOT) 24 U/L (10-37) Alanine Aminotransferase (ALT/SGPT) 26 U/L (12-78) Alkaline Phosphatase 75 U/L (50-136) Total Protein 7.7 g/dL (6.0-8.3) Albumin 3.6 g/dL (3.5-5.0) Influenza Type A Antigen Negative For Type A Influenza Type B Antigen Negative For Type B SARS-CoV-2, RNA, NAAT NEGATIVE SARS CoV-2 Group A Streptococcus Rapid negative (NEGATIVE) Urine Color COLORLESS (YELLOW) Urine Appearance CLEAR (CLEAR) Urine pH 6.5 (5.0-8.0) Urine Specific [place] 1.001 (1.001-1.031) Urine Protein NEGATIVE mg/dL (NEGATIVE) Urine Glucose (UA) NEGATIVE mg/dL (NEGATIVE) Urine Ketones NEGATIVE mg/dL (NEGATIVE) Urine Occult Blood MODERATE (NEGATIVE) H Urine Nitrate NEGATIVE (NEGATIVE) Urine Bilirubin NEGATIVE mg/dL (NEGATIVE) Urine Urobilinogen 0.2 mg/dL (0.2-1.0) Urine Leukocyte Esterase NEGATIVE Gala/uL Urine RBC 0-1 /HPF (0-1) Urine WBC 2-5 /HPF (0-1) H Urine Squamous Epithelial Cells FEW /HPF (0-2) Urine Other Crystals (Auto) 1 /HPF (None Seen) Urine Bacteria RARE /HPF (None Seen) Labs Reviewed?: Yes ED Course ED Course Orders Procedure Category Date Status Time Cbc With Differential LAB 11/25/24 Complete 17:42 Basic Metabolic Panel LAB 11/25/24 Complete 17:42 Urinalysis Profile LAB 11/25/24 Complete 17:42 Covid Rna Naat LAB 11/25/24 Complete 17:42 Influenza Type A & B, LAB 11/25/24 Complete Rapid 17:42 Rapid (Group A Strep) LAB 11/25/24 Complete 17:42 0.9%Nacl 1000ml (Ns PHA 11/25/24 Complete 1000ml) 17:42 Metoclopramide 10 PHA 11/25/24 Complete Mg/2 Ml Vial (Reglan 1 18:00 Diphenhydramine Hcl PHA 11/25/24 Complete (Benadryl Inj) 18:00 Hepatic Function Panel LAB 11/25/24 Complete 20:10 Morphine 4mg Syg PHA 11/25/24 Complete (Morphine 4mg Syg) 20:30 Current Medications Medications (Trade) Dose Ordered Sig/Farhat Route PRN Reason Start Time Stop Time Status Last Admin Dose Admin Diphenhydramine HCl (BENAdryl INJ) 25 mg ONCE ONCE IV 11/25/24 18:00 11/25/24 18:01 DC 11/25/24 18:10 Metoclopramide HCl (regLAN 10MG IV) 10 mg ONCE ONCE IVP 11/25/24 18:00 11/25/24 18:01 DC 11/25/24 18:10 Morphine Sulfate (morPHINE 4MG SYG) 2 mg ONCE ONCE IVP 11/25/24 20:30 11/25/24 20:31 DC 11/25/24 20:27 Sodium Chloride 1,000 ml @ 1,000 mls/hr Q1H STAT IV 11/25/24 17:42 11/25/24 18:41 DC 11/25/24 18:10 Vital Signs Date Time Temp Pulse Resp B/P (MAP) Pulse Ox O2 Delivery O2 Flow Rate FiO2 11/25/24 19:19 98.2 82 18 128/68 98 Room Air* 0 21 11/25/24 17:45 98.2 78 20 131/81 99 Room Air* 0 21 11/25/24 17:23 99.1 107 14 134/86 100 Room Air 0 Patient feels better after receiving the fluid. Laboratory analysis is unremarkable beyond a mild leukocytosis. Medical Decision Making MDM Differential diagnosis for this could be simple dehydration or a gastroenteritis or migraine. Standard labs have been ordered the patient has been given some IV fluids. Patient feels better her headache is gone her nausea is very much subsided. I will discharge her with some anti nausea medicine. DX & DISP Disposition: Discharge Departure Impression: Primary Impression: Headache Additional Impression: Nausea & vomiting Condition: Stable Scripts Ondansetron (Ondansetron Odt) 4 Mg Tab.rapdis 1 TAB PO Q6HPRN PRN for nausea/vomiting for 4 Days, #16 TAB 0 Refills Prov: ESTEFANIA DRAKE MD 11/25/24 Additional Instructions: I am not sure what caused your symptoms. I can tell you that your laboratory studies has been unremarkable except for a mild increase in your white blood cell count. You do not have a urinary tract infection you do not have any electrolyte disorders. It is possible that you were simply dehydrated. Please drink plenty of fluids every day. Drink enough so that your urine runs clear at least once a day. I have sent a prescription to your pharmacy for anti nausea medications. Please follow-up with your primary care physician if things do not get better. Referrals: SELF,REFERRAL (PCP) MARISSA HARVEY NP Nov 25, 2024 19:56 ESTEFANIA DRAKE MD Nov 25, 2024 21:09
[2024-11-25 20:06] LABS: APPEARANCE,URINE CLEAR (CLEAR); GLUCOSE, URINE (UA) NEGATIVE (NEGATIVE); LEUKOCYTE ESTERASE ,URINE NEGATIVE Leu/uL (NEGATIVE); NITRATE,URINE NEGATIVE (NEGATIVE); OCCULT BLOOD,URINE MODERATE (NEGATIVE)
[2024-11-25 20:18] LABS: ADD UA MICROSCOPIC YES
[2024-11-25 20:19] LABS: SQUAMOUS EPITHELIAL CELL,UR FEW /HPF (0-2); UNCLASSIFIED CRYSTAL 1 /HPF (None Seen)
[2024-11-25 20:48] LABS: ASPARTATE AMINOTRANSFERASE 24.0 U/L (10-37); TOTAL PROTEIN, SERUM 7.7 g/dL (6.0-8.3)
[2024-11-25] MEDS ORDERED: ONDA-243 PO (21:08)
[2024-11-25 21:26] VITALS: BP 120/74; PULSE 80; RESP 20; TEMP 98.2; O2SAT 99
== END 2024-11-25 21:41 | disposition home or self-care (01) ==
LOC: EDH 17:19
DX: R51.9 Headache, unspecified (principal); R11.2 Nausea with vomiting, unspecified; H53.149 Visual discomfort, unspecified; I10 Essential (primary) hypertension; M35.00 Sjogren syndrome, unspecified; M32.9 Systemic lupus erythematosus, unspecified; Z20.822 Contact with and (suspected) exposure to COVID-19; Z98.890 Other specified postprocedural states; Z88.0 Allergy status to penicillin; Z88.5 Allergy status to narcotic agent; Z91.018 Allergy to other foods
CPT/HCPCS: 99284; 96374; 96375; 87635; 96361; 80076; 80048; 85025; 87880; 87804 ×2; 81001; 36415; J1200; J7030; J2270; J2765

== ENCOUNTER 2024-12-13 10:42 | Emergency (ER) | payer MEDICAID ==
[~2024-12-13] VITALS: Ht 152.4 cm; Wt 86.6 kg
[~2024-12-13 10:42] MED LIST changes: +ONDA-243 PO
[2024-12-13 11:07] VITALS: BP 131/96; PULSE 84; RESP 16; TEMP 98.6; O2SAT 99
[2024-12-13 11:14] LABS: IMMATURE GRANULOCYTE ABSOLUTE 0.25 K/uL (0-1); NUCLEATED RED BLOOD CELLS 0.0 % (0.0-0.19); PLATELET COUNT (AUTO) 263 K/uL (130-400); RED BLOOD CELL COUNT(AUTO) 3.77 MIL/uL (4.00-5.50); RED CELL DISTRIBUTION WIDTH 14.6 % (11.0-15.5); WHITE BLOOD COUNT (AUTO) 13.1 K/uL (4.8-10.8)
--- NOTE | 2024-12-13 11:18 | ERN ---
General Chief Complaint: Headache Stated Complaint: MIGRAINE HEADACHE Time Seen by MD: 10:51 History of Present Illness Initial Comments This is a 44-year-old female presents to ED with a severe throbbing headache that began 2 days back, associated with nausea and 11 episodes of vomiting that started this morning. Pain is localized to frontal and temporal region, similar to prior migraines. No fever, neck stiffness, vision loss, weakness, or head trauma. She has a known history of migraine headaches which started from the age of 14. Allergies: Coded Allergies: hydroxychloroquine (Unverified Allergy, Severe, 10/29/14) LOSES ALL BODILY FUNCTIONS Penicillins (Unverified Allergy, Unknown, RASH, 10/29/14) coconut oil (Unverified Allergy, Unknown, 10/30/14) food coconut codeine (Unverified Allergy, Unknown, SHORTNESS OF BREATH, 10/29/14) peach (Unverified Allergy, Unknown, 10/30/14) Home Meds Active Scripts Ondansetron (Ondansetron Odt) 4 Mg Tab.rapdis, 1 TAB PO Q6HPRN PRN for nausea/vomiting for 4 Days, #16 TAB 0 Refills Prov:ESTEFANIA DRAKE MD 11/25/24 Reported Medications Ferrous Sulfate (Ferrous Sulfate) 325 Mg Tablet, 325 MG PO DAILY, TAB 07/22/19 Multivitamin (Multi-Vitamin Daily) 1 Each Tablet, 1 EACH PO DAILY, TAB 07/22/19 Past Medical History Past Medical History: Asthma, Hypertension Medical History Other: Systemic lupus erythematosus, Sjogren's syndrome. Past Surgical History: Surgical History Other: D&C and sinus surgery. Family History Family History: DM, HTN Social History Social History: Negative, Lives with family ROS Dictation CONSTITUTIONAL: Denies fever, chills, or night sweats. No unintentional weight loss reported. NEUROLOGICAL: Severe headache, has photophobia: No vision loss, no sinus pain, no sore throat. ENT: No hearing loss, otalgia, otorrhea, rhinitis, rhinorrhea, hoarseness, or sore throat. CARDIOVASCULAR: Denies any exertional angina, dyspnea on exertion, orthopnea, paroxysmal nocturnal dyspnea, palpitations, life-threatening arrhythmias, claudication. PULMONARY: Denies chest pain, Denies any shortness of breath, GASTROINTESTINAL: Has nausea, reported vomiting 11 episodes this morning. No abdominal pain, diarrhea. GENITOURINARY: Denies frequency, urgency, nocturia, hematuria or incontinence. Physical Exam Physical Exam Dictation PHYSICAL EXAM GENERAL APPEARANCE: Uncomfortable, photophobic, actively vomiting. NEUROLOGICAL: Alert and oriented x3. No focal neurological deficits HEENT: Face is symmetric. Pupils are equal and reactive. Extraocular movements are intact. CHEST: Normal chest expansion. LUNGS: Absence of any rales, rhonchi or any wheezing. CARDIOVASCULAR: Regular. S1 and S2 normal. No appreciable rubs, murmurs or gallops. ABDOMEN: Soft, nontender. Normal bowel sounds. Results Laboratory and Microbiology Lab and Micro Result Laboratory Tests Test 12/13/24 11:00 12/13/24 11:10 White Blood Count 13.1 K/uL (4.8-10.8) H Red Blood Count 3.77 MIL/uL (4.00-5.50) L Hemoglobin 11.1 g/dL (12.0-16.0) L Hematocrit 32.8 % (36-48) L Mean Corpuscular Volume 87.0 fL (79-99) Mean Corpuscular Hemoglobin 29.4 pg (27.0-33.0) Mean Corpuscular Hemoglobin Concent 33.8 g/dL (32.0-36.0) Red Cell Distribution Width 14.6 % (11.0-15.5) Platelet Count 263 K/uL (130-400) Mean Platelet Volume 10.1 fL (7.5-10.5) Immature Granulocyte % (Auto) 1.9 % (0-1) H Neutrophils (%) (Auto) 83.3 % (40.0-77.0) H Lymphocytes (%) (Auto) 8.4 % (21.0-51.0) L Monocytes (%) (Auto) 5.8 % (3.0-13.0) Eosinophils (%) (Auto) 0.3 % (0.0-8.0) Basophils (%) (Auto) 0.3 % (0.0-5.0) Neutrophils # (Auto) 10.9 K/uL (1.8-7.7) H Lymphocytes # (Auto) 1.1 K/uL (1.0-4.8) Monocytes # (Auto) 0.8 K/uL (0.1-1.0) Eosinophils # (Auto) 0.04 K/uL (0.00-0.70) Basophils # (Auto) 0.04 K/uL (0.00-0.20) Absolute Immature Granulocyte (auto 0.25 K/uL (0-1) Nucleated Red Blood Cells 0.0 % (0.0-0.19) Sodium Level 137 mmol/L (136-145) Potassium Level 3.5 mmol/L (3.5-5.1) Chloride Level 99 mmol/L (101-111) L Carbon Dioxide Level 29 mmol/L (21-32) Blood Urea Nitrogen 11 mg/dL (7-18) Creatinine 0.7 mg/dL (0.5-1.0) Glomerular Filtration Rate Calc 109 mL/min (>90) Random Glucose 109 mg/dL (70-105) H Total Calcium 8.4 mg/dL (8.5-10.1) L Total Bilirubin 0.5 mg/dL (0.2-1.0) Aspartate Amino Transf (AST/SGOT) 17 U/L (10-37) Alanine Aminotransferase (ALT/SGPT) 23 U/L (12-78) Alkaline Phosphatase 65 U/L (50-136) Total Protein 6.6 g/dL (6.0-8.3) Albumin 2.9 g/dL (3.5-5.0) L Serum Test, Qualitative NEGATIVE (NEGATIVE) Urine Color COLORLESS (YELLOW) Urine Appearance CLEAR (CLEAR) Urine pH 7.5 (5.0-8.0) Urine Specific [place] 1.014 (1.001-1.031) Urine Protein NEGATIVE mg/dL (NEGATIVE) Urine Glucose (UA) NEGATIVE mg/dL (NEGATIVE) Urine Ketones NEGATIVE mg/dL (NEGATIVE) Urine Occult Blood NEGATIVE (NEGATIVE) Urine Nitrate NEGATIVE (NEGATIVE) Urine Bilirubin NEGATIVE mg/dL (NEGATIVE) Urine Urobilinogen 0.2 mg/dL (0.2-1.0) Urine Leukocyte Esterase NEGATIVE Gala/uL Labs Reviewed?: Yes EKG/XRAY/US/CT/MRI CT Scan Comment [place] [id number] [address] IMAGING REPORT Signed PATIENT: ADITYA ANTON MR#: [id number] : 1980 SEX: F AGE: 44 LOCATION: [facility] ORDER 39 STATUS: REG ER REPORT#: [id number] SERVICE 39 REASON: headache ORDERING PHYSICIAN: KEVEN MORE MD PROCEDURE: HEAD WO - CT HEAD/BRAIN W/O CONTRAST Exam: NONCONTRAST CT BRAIN REASON: headache. COMPARISON: None. TECHNIQUE: Images are obtained from vertex to the skull base. The exam was performed without IV contrast. FINDINGS: There is normal appearing brain parenchyma. There are no focal mass lesions. There is is no evidence of intracranial hemorrhage or acute stroke. Ventricles and sulci appear normal. Posterior fossa and brainstem structures are unremarkable. Paranasal sinuses and remaining extracranial soft tissues appear normal as well. IMPRESSION: 1. Normal noncontrast CT brain. CT was performed with one or more following dose reduction techniques: automated exposure control, adjustment of the mA and kv according to patient's size, or use of a iterative reconstruction technique. DICTATED BY: KAROL CRAWFORD MD DATE: 12/13/24 1259 ELECTRONICALLY SIGNED BY: KAROL CRAWFORD MD DATE: 12/13/24 1302 [facility] MDM: Differential diagnosis: Chronic migraine, tension headache, Rationale: Tests considered and ordered secondary to shared decision making include: Previous outside records reviewed: Old ER visits. Risk of complication and/or morbidity or mortality of patient management: None Medications-Per medication reconciliation Need for hospitalization: Patient does not meet criteria for hospitalization. Need for emergency major/minor surgery: No Patient is a 44-year-old female coming in complaining of a headache. Patient s tates that this has been ongoing for several months. Patient was evaluated with a CT and laboratory workup within normal limits. Patient is pending a visit by neurologist. Patient will be discharged in stable condition with a diagnosis of chronic headache with a tension headache. ED Course Orders Procedure Category Date Status Time Cbc With Differential LAB 12/13/24 In Process 10:52 Comprehensive LAB 12/13/24 Complete Metabolic Panel 10:52 Urinalysis Profile LAB 12/13/24 Complete 10:52 Testing, LAB 12/13/24 Complete Serum Hcg 10:52 Diphenhydramine Hcl PHA 12/13/24 Complete (Benadryl Inj) 11:00 0.9%Nacl 1000ml (Ns PHA 12/13/24 In Process 1000ml) 11:00 Prochlorperazine PHA 12/13/24 Complete 10mg/2ml Inj 11:00 Acetaminophen 500mg PHA 12/13/24 Complete Tab (Tylenol 500mg T 11:00 Ct Head/Brain W/O CT 12/13/24 Resulted Contrast 12:40 Current Medications Medications (Trade) Dose Ordered Sig/Farhat Route PRN Reason Start Time Stop Time Status Last Admin Dose Admin Acetaminophen (TYLenol 500MG TAB) 500 mg ONCE ONCE PO 12/13/24 11:00 12/13/24 11:13 DC 12/13/24 11:33 Diphenhydramine HCl (BENAdryl INJ) 25 mg ONCE ONCE IV 12/13/24 11:00 12/13/24 11:13 DC 12/13/24 11:32 Prochlorperazine Edisylate (Compazine 10mg/ 2ml Inj) 10 mg ONCE ONCE IV 12/13/24 11:00 12/13/24 11:15 DC 12/13/24 11:32 Sodium Chloride 1,000 ml @ 125 mls/hr ONCE ONCE IV 12/13/24 11:00 12/13/24 18:59 12/13/24 11:32 Vital Signs Date Time Temp Pulse Resp B/P (MAP) Pulse Ox O2 Delivery O2 Flow Rate FiO2 12/13/24 11:07 98.6 84 16 131/96 99 Room Air* 0 21 12/13/24 10:44 98.6 84 16 131/96 99 Room Air DX & DISP Disposition: Discharge Departure Impression: Primary Impression: Tension headache Additional Impression: Migraines Condition: Stable Scripts Diclofenac Sodium (Voltaren Arthritis Pain) 1 % Gel..gram. 5 GM TP BID for 7 Days, #1 TUBE Prov: KEVEN MORE MD 12/13/24 Methocarbamol (Robaxin) 750 Mg Tab 1 TAB PO BID for 5 Days, #10 TAB 0 Refills Prov: KEVEN MORE MD 12/13/24 Additional Instructions: FOLLOW-UP WITH PRIMARY CARE PROVIDER IN 1 TO 2 DAYS. TAKE MEDICATIONS DIRECTED HERE IN THE EMERGENCY ROOM. OKAY TO CONTINUE HOME MEDICATIONS UNLESS OTHERWISE DISCUSSED DURING YOUR VISIT IN THE EMERGENCY ROOM TODAY. RETURN TO YOUR NEAREST EMERGENCY ROOM IF SYMPTOMS WORSEN OR IF THERE IS NO IMPROVEMENT. CALL 911 IF YOU NEED IMMEDIATE ASSISTANCE. TAKE TYLENOL [id number] NEEDED AND IF NO CONTRAINDICATIONS ARE PRESENT. INCREASE ORAL HYDRATION. A WOUND CULTURE OR URINE CULTURE WAS ORDERED HERE IN THE EMERGENCY ROOM DEPARTMENT PLEASE FOLLOW-UP WITH PRIMARY CARE PROVIDER AND ADVISE THEM TO GET REPORTS FROM OUR FACILITY. IF YOU HAD ANY SERGEY WRAP/SPLINTS THAT WERE APPLIED HERE, PLEASE DO NOT REMOVE THEM UNTIL YOU SEE YOUR PRIMARY CARE OR SPECIALTY. Referrals: Referrals: SELF,REFERRAL (PCP) GREGG FLYNN MD, LUIS A MD Time of Disposition: 13:29 DENVER TITUS MD Dec 13, 2024 11:18 KEVEN MORE MD Dec 13, 2024 13:30
[2024-12-13 11:31] LABS: CREATININE 0.7 mg/dL (0.5-1.0); GLOMERULAR FILTR. RATE CALC 109.0 mL/min (>90); GLUCOSE,RANDOM 109.0 mg/dL (70-105); SODIUM SERUM 137.0 mmol/L (136-145); UREA NITROGEN, BLOOD 11.0 mg/dL (7-18)
[2024-12-13] MEDS: 0.9%NACL 1000ML 1,000 ML IV ONE (11:32)
[2024-12-13] MEDS: PROCHLORPERAZINE 10MG/2ML INJ IV ONE (11:32)
[2024-12-13 11:36] LABS: ASPARTATE AMINOTRANSFERASE 17.0 U/L (10-37); TOTAL PROTEIN, SERUM 6.6 g/dL (6.0-8.3)
[2024-12-13 12:05] LABS: APPEARANCE,URINE CLEAR (CLEAR); GLUCOSE, URINE (UA) NEGATIVE (NEGATIVE); LEUKOCYTE ESTERASE ,URINE NEGATIVE Leu/uL (NEGATIVE); NITRATE,URINE NEGATIVE (NEGATIVE); OCCULT BLOOD,URINE NEGATIVE (NEGATIVE)
[2024-12-13 12:08] LABS: ADD UA MICROSCOPIC NO
--- NOTE | 2024-12-13 13:02 | HMCIMG ---
Exam: NONCONTRAST CT BRAIN REASON: headache. COMPARISON: None. TECHNIQUE: Images are obtained from vertex to the skull base. The exam was performed without IV contrast. FINDINGS: There is normal appearing brain parenchyma. There are no focal mass lesions. There is is no evidence of intracranial hemorrhage or acute stroke. Ventricles and sulci appear normal. Posterior fossa and brainstem structures are unremarkable. Paranasal sinuses and remaining extracranial soft tissues appear normal as well. IMPRESSION: 1. Normal noncontrast CT brain. CT was performed with one or more following dose reduction techniques: automated exposure control, adjustment of the mA and kv according to patient's size, or use of a iterative reconstruction technique.
[2024-12-13] MEDS ORDERED: DICL20GE TP (13:30)
[2024-12-13] MEDS ORDERED: METH-662 PO (13:30)
== END 2024-12-13 14:31 | disposition home or self-care (01) ==
LOC: EDH 10:42
DX: G44.209 Tension-type headache, unspecified, not intractable (principal); G43.909 Migraine, unspecified, not intractable, without status migrainosus; J45.909 Unspecified asthma, uncomplicated; I10 Essential (primary) hypertension; M32.9 Systemic lupus erythematosus, unspecified; Z91.018 Allergy to other foods; Z88.0 Allergy status to penicillin; Z88.5 Allergy status to narcotic agent; Z79.899 Other long term (current) drug therapy
CPT/HCPCS: 99285; 96374; 70450; 96375; 80053; 84703; 85025; 81003; 36415; J1200; J7030; J0780